=== PATIENT | female | born 1970 ===

== ENCOUNTER 2018-10-04 06:33 | Emergency (ER) | payer OTHER ==
[2018-10-04 06:48] VITALS: RESP 18; TEMP 98.5; O2SAT 98
[2018-10-04 06:49] VITALS: BMI 41.1
[2018-10-04] MEDS ORDERED: Sodium Chloride 0.9% 1,000 ML IV STA (07:56)
[2018-10-04 08:43] LABS: BASO # 0.1 K/uL (0.0-0.2); BASO % 0.9 % (0.0-2.0); EOS # 0.2 K/uL (0.0-0.7); EOS % 2.4 % (0.0-4.0); HEMOGLOBIN 12.1 g/dL (12.0-16.0); LYMPH # 2.4 K/uL (1.0-4.3); LYMPH % 28.5 % (20.0-40.0); MEAN CELL VOLUME 86.6 fl (81.0-99.0); MEAN CORPUSCULAR HEMOGLOBIN 28.8 pg (27.0-31.0); MEAN CORPUSCULAR HGB CONC 33.2 g/dL (33.0-37.0); MEAN PLATELET VOLUME 8.2 fl (7.2-11.7); MONO # 0.5 K/uL (0.0-0.8); MONO % 6.4 % (0.0-10.0); NEUT # 5.2 K/uL (1.8-7.0); NEUT % 61.8 % (50.0-75.0); RBC 4.2 Mil/uL (3.80-5.20); RED CELL DISTRIBUTION WIDTH 14.2 % (11.5-14.5); WHITE BLOOD COUNT 8.4 K/uL (4.8-10.8)
--- NOTE | 2018-10-04 08:44 | ED PDOC ---
HPI: Abdomen Time Seen by Provider: 10/04/18 07:15 Chief Complaint (Nursing): Abdominal Pain Chief Complaint (Provider): Abdominal Pain History Per: Patient, Setup Technician (Robb Hughes #[id number]) Onset/Duration Of Symptoms: Worse Since (x2 weeks), Other (x5 months) Current Symptoms Are (Timing): Still Present Additional Complaint(s): Patient is a 48 y/o female with a PMHx of HTN, anxiety, and depression who presents to the ED for evaluation of permanent abdominal pain for the past five months. Patient states for the past two weeks she has had an associative fever, dysuria, hematuria, and occasional diarrhea. Patient claims she took Acetaminophen three days ago with minimal relief. Patient reports her temperature two days ago was 39 degrees Celsius. Of note, patient takes medication for depression, panic attacks, and headaches. PCP: None Provided Past Medical History Reviewed: Historical Data, Nursing Documentation, Vital Signs Vital Signs: Last Vital Signs Temp 98.5 F 10/04/18 06:48 Pulse 68 10/04/18 06:48 Resp 18 10/04/18 06:48 BP 132/78 10/04/18 06:48 Pulse Ox 98 10/04/18 06:48 - Medical History PMH: Anxiety, Depression, HTN - Surgical History Other surgeries: Hysterectomy - Family History Family History: States: No Known Family Hx - Home Medications Home Medications: Ambulatory Orders Medication Instructions Recorded Nitrofurantoin Macrocrystals 100 mg PO BID #9 cap 10/04/18 [Macrobid] traMADol [Ultram] 50 mg PO BID PRN #10 tab 10/04/18 - Allergies Allergies/Adverse Reactions: Allergies Allergy/AdvReac Type Severity Reaction Status Date / Time No Known Allergies Allergy Verified 10/04/18 06:57 Review of Systems ROS Statement: Except As Marked, All Systems Reviewed And Found Negative Constitutional: Positive for: Fever Gastrointestinal: Positive for: Abdominal Pain, Diarrhea Genitourinary Female: Positive for: Dysuria, Hematuria Physical Exam - Reviewed Nursing Documentation Reviewed: Yes Vital Signs Reviewed: Yes - Physical Exam Appears: Positive for: Non-toxic, No Acute Distress Head Exam: Positive for: ATRAUMATIC, NORMAL INSPECTION, NORMOCEPHALIC Skin: Positive for: Normal Color, Warm, DRY Eye Exam: Positive for: EOMI, Normal appearance, PERRL Neck: Positive for: Normal, Painless ROM, Supple Cardiovascular/Chest: Positive for: Regular Rate, Rhythm. Negative for: Murmur Respiratory: Positive for: Normal Breath Sounds. Negative for: Respiratory Distress Gastrointestinal/Abdominal: Positive for: Soft, Tenderness (left lower quadrant) Pelvic Exam: Positive for: External Exam Normal, Blood (Minimal dark blood in vault), Other (Emr Implementation Specialist: DERRELL Cartagena). Negative for: Active Bleeding, Lesions, Mass, Ulcers Back: Positive for: Normal Inspection. Negative for: L CVA Tenderness, R CVA Tenderness, Vertebral Tenderness Extremity: Positive for: Normal ROM. Negative for: Pedal Edema, Deformity Neurological/Psych: Positive for: Alert, Oriented (x3) - Laboratory Results Result Diagrams: 10/04/18 08:30 10/04/18 08:30 - ECG ECG Rhythm: Positive for: Sinus Bradycardia. Negative for: ST/T Changes Rate: 54 O2 Sat by Pulse Oximetry: 98 (RA) Pulse Ox Interpretation: Normal Medical Decision Making Medical Decision Making: Time: 08 Impression: UTI; r/o kidney stones Plan: CT Abd & Pelvis w/o PO or IV Contrast EKG CMP CBC PTT Prothrombin Time IV Fluids Toradol 15 mg IVP UA Time: 1031 FINDINGS: LOWER THORAX: Unremarkable. LIVER: Unremarkable. No gross lesion or ductal dilatation. GALLBLADDER AND BILE DUCTS: Unremarkable. PANCREAS: Unremarkable. No gross lesion or ductal dilatation. SPLEEN: Unremarkable. ADRENALS: Unremarkable. No mass. KIDNEYS AND URETERS: Punctate nonobstructing intrarenal calculus is identified at the lower pole left kidney. No right radiodense urolithiasis. No bilateral perinephric fluid collection or obstructive uropathy is appreciate bilaterally. The bilateral ureters appear normal caliber overall. No suspicious renal contour changes to s uggest underlying mass. The lack of intravenous contrast limits evaluation of the renal parenchyma bilaterally. VASCULATURE: Unremarkable. No aortic aneurysm. No aortic atherosclerotic calcification or mural plaque present. BOWEL: Unremarkable. No obstruction. No gross mural thickening. APPENDIX: Unremarkable. Normal appendix. PERITONEUM: Unremarkable. No free fluid. No free air. LYMPH NODES: Unremarkable. No enlarged lymph nodes. BLADDER: Unremarkable. REPRODUCTIVE: There is a complex cystic mass identified at the left lower quadrant abdomen/left hemipelvis crossing over to the right slightly, measuring 18.6 x 10.1 x 20.9 cm (transverse by anteroposterior by superoinferior dimensions) , well-circumscribed without local peritoneal reactive changes associated. Septations are identified inferiorly. This suspicious for possible left ovarian neoplasm including cystadenoma or cystadenocarcinoma. Follow-up transabdominal pelvic ultrasonography advised. No suspicious right adnexal changes. Right ovary is felt to be identified independent of this cystic mass. BONES: Degenerative grade 1 spondylolisthesis L5 posterior to S1 less than 1 cm. No spondylolysis identified. OTHER FINDINGS: None. IMPRESSION: 1. A 20.9 cm complex cystic mass is seen at the left lower quadrant/left hemipelvis minimally involving the right [place] abdomen and right hemipelvis suspicious for possible left adnexal cystadenoma or cystadenocarcinoma though other cystic neoplasms are not excluded. Follow-up transabdominal pelvic ultrasound advised for added characterization. 2. Punctate nonobstructing intrarenal calculus lower pole left kidney. 11:[address] Cardoza ([facility]Day [facility] Assistant production service manager), recommends CA-125 and pelvic ultrasound, follow-up with [facility] as outpatient. Accession No. : [id number] Patient Name / ID : FRANCISCA DAN / [id number] Exam Date : 10/04/2018 11:39:58 ( Approved ) Study Comment : Sex / Age : F / 48Y Creator : Enzo Pablo MD Dictator : Enzo Pablo MD Accounting/Finance Tutor : Intervention Manager : Enzo Pablo MD Approver2 : Report Date : 10/04/2018 12:25:39 My Comment : Date of service: 10/04/2018 HISTORY: L adnexal mass COMPARISON: None available. TECHNIQUE: FINDINGS: UTERUS: Prior hysterectomy. ENDOMETRIUM: As above. CERVIX: As above. RIGHT OVARY: What appears the right ovary is mildly enlarged measuring 4.5 x 2.9 x 4.6 cm in harbors a complex cyst measuring 3.0 x 2.6 x 3.0 cm. Arterial spectral waveform is interrogated on spectral Doppler ultrasonography and torsion is not suggested. LEFT OVARY: The left ovary is not clearly identified but may be replaced by a large complex cystic adnexal mass measuring 21.1 x 9.9 x 17.1 cm corresponding to the CT finding identified earlier today 10/04/2018. Limited blood flow is appreciated within the septations. This is a nonspecific finding could reflect this cystic adenoma or cystic adenocarcinoma as previously suspected. The inferior portion of the cystic lesion contains the vast majority of septal complexity. FREE FLUID: No significant free fluid noted. OTHER FINDINGS: None. IMPRESSION: 21.1 cm complex cystic mass corresponds to the CT finding performed earlier today 10/04/2018 with differential diagnosis primarily consisting of cysts cystic adenoma or cystadenocarcinoma though other etiologies are possible. Gynecological consultation advised. Mildly enlarged right ovary due to a complex cyst 3.0 cm greatest dimension. Prior hysterectomy. Findings discussed with patient in detail using [employer] optical glass sawyer (#[id number]), need for close follow-up with Ob-Day Care Assistant discussed, questions answered, expressed verbal understanding. Scribe Attestation: Documented by Amadou Pulido, acting as a scribe for Anahi Ramsey MD. Provider Scribe Attestation: All medical record entries made by the Scribe were at my direction and personall y dictated by me. I have reviewed the chart and agree that the record accurately reflects my personal performance of the history, physical exam, medical decision making, and the department course for this patient. I have also personally directed, reviewed, and agree with the discharge instructions and disposition. Disposition - Clinical Impression Clinical Impression: Ovarian cystic mass, UTI (urinary tract infection) - Disposition [facility] Disposition: Routine/Home Disposition Time: 13:00 Condition: STABLE Prescriptions: Nitrofurantoin Macrocrystals [Macrobid] 100 mg PO BID #9 cap traMADol [Ultram] 50 mg PO BID PRN #10 tab PRN Reason: Pain, Severe (8-10) Instructions: Urinary Tract Infections in Adults, Ovarian Cysts Forms: [employer] (Uzbek) Print Language: NAMIBIAN
[2018-10-04 08:48] LABS: INR 1.1; PROTHROMBIN TIME 12.4 Seconds (9.8-13.1)
[2018-10-04 08:59] LABS: ALB/GLOB RATIO 1.2 (1.0-2.1); ALBUMIN 4.2 g/dL (3.5-5.0); ALT/SGPT 19 U/L (9-52); AST/SGOT 18 U/L (14-36); BLOOD UREA NITROGEN 14 mg/dl (7-17); CALCIUM 9.6 mg/dL (8.4-10.2); GFR NON-AFRICAN AMERICAN > 60
[2018-10-04 09:00] LABS: SQUAMOUS EPITHIAL 4 /hpf (0-5); URINE BACTERIA MANY (<OCC); URINE BILIRUBIN NEGATIVE (NEGATIVE); URINE BLOOD MODERATE (NEGATIVE); URINE CLARITY CLOUDY (Clear); URINE COLOR YELLOW (YELLOW); URINE GLUCOSE (UA) NEG (NEGATIVE); URINE LEUKOCYTE ESTERASE NEG Leu/uL (Negative); URINE PROTEIN NEGATIVE (NEGATIVE); URINE UROBILINOGEN 0.2-1.0 mg/dL (0.2-1.0)
--- NOTE | 2018-10-04 10:35 | CT ---
Date of service: 10/04/2018 PROCEDURE: CT Abdomen and Pelvis without intravenous contrast HISTORY: LLQ pain COMPARISON: None. TECHNIQUE: Helical CT of the abdomen and pelvis was performed without oral or intravenous contrast as per referring physician request. Coronal and sagittal reformats were generated. Radiation dose: Total exam DLP = 947.62 mGy-cm. This CT exam was performed using one or more of the following dose reduction techniques: Automated exposure control, adjustment of the mA and/or kV according to patient size, and/or use of iterative reconstruction technique. FINDINGS: LOWER THORAX: Unremarkable. LIVER: Unremarkable. No gross lesion or ductal dilatation. GALLBLADDER AND BILE DUCTS: Unremarkable. PANCREAS: Unremarkable. No gross lesion or ductal dilatation. SPLEEN: Unremarkable. ADRENALS: Unremarkable. No mass. KIDNEYS AND URETERS: Punctate nonobstructing intrarenal calculus is identified at the lower pole left kidney. No right radiodense urolithiasis. No bilateral perinephric fluid collection or obstructive uropathy is appreciate bilaterally. The bilateral ureters appear normal caliber overall. No suspicious renal contour changes to suggest underlying mass. The lack of intravenous contrast limits evaluation of the renal parenchyma bilaterally. VASCULATURE: Unremarkable. No aortic aneurysm. No aortic atherosclerotic calcification or mural plaque present. BOWEL: Unremarkable. No obstruction. No gross mural thickening. APPENDIX: Unremarkable. Normal appendix. PERITONEUM: Unremarkable. No free fluid. No free air. LYMPH NODES: Unremarkable. No enlarged lymph nodes. BLADDER: Unremarkable. REPRODUCTIVE: There is a complex cystic mass identified at the left lower quadrant abdomen/left hemipelvis crossing over to the right slightly, measuring 18.6 x 10.1 x 20.9 cm (transverse by anteroposterior by superoinferior dimensions) , well-circumscribed without local peritoneal reactive changes associated. Septations are identified inferiorly. This suspicious for possible left ovarian neoplasm including cystadenoma or cystadenocarcinoma. Follow-up transabdominal pelvic ultrasonography advised. No suspicious right adnexal changes. Right ovary is felt to be identified independent of this cystic mass. BONES: Degenerative grade 1 spondylolisthesis L5 posterior to S1 less than 1 cm. No spondylolysis identified. OTHER FINDINGS: None. IMPRESSION: 1. A 20.9 cm complex cystic mass is seen at the left lower quadrant/left hemipelvis minimally involving the right [place] abdomen and right hemipelvis suspicious for possible left adnexal cystadenoma or cystadenocarcinoma though other cystic neoplasms are not excluded. Follow-up transabdominal pelvic ultrasound advised for added characterization. 2. Punctate nonobstructing intrarenal calculus lower pole left kidney.
--- NOTE | 2018-10-04 12:29 | US ---
Date of service: 10/04/2018 HISTORY: L adnexal mass COMPARISON: None available. TECHNIQUE: FINDINGS: UTERUS: Prior hysterectomy. ENDOMETRIUM: As above. CERVIX: As above. RIGHT OVARY: What appears the right ovary is mildly enlarged measuring 4.5 x 2.9 x 4.6 cm in harbors a complex cyst measuring 3.0 x 2.6 x 3.0 cm. Arterial spectral waveform is interrogated on spectral Doppler ultrasonography and torsion is not suggested. LEFT OVARY: The left ovary is not clearly identified but may be replaced by a large complex cystic adnexal mass measuring 21.1 x 9.9 x 17.1 cm corresponding to the CT finding identified earlier today 10/04/2018. Limited blood flow is appreciated within the septations. This is a nonspecific finding could reflect this cystic adenoma or cystic adenocarcinoma as previously suspected. The inferior portion of the cystic lesion contains the vast majority of septal complexity. FREE FLUID: No significant free fluid noted. OTHER FINDINGS: None. IMPRESSION: 21.1 cm complex cystic mass corresponds to the CT finding performed earlier today 10/04/2018 with differential diagnosis primarily consisting of cysts cystic adenoma or cystadenocarcinoma though other etiologies are possible. Gynecological consultation advised. Mildly enlarged right ovary due to a complex cyst 3.0 cm greatest dimension. Prior hysterectomy.
[2018-10-04 13:47] VITALS: BP 124/78
--- NOTE | 2018-10-05 10:27 | CARD ---
APPROVED REPORT Date of service: 10/04/2018 EKG Measurement Heart [id number] <Conclusion> Sinus bradycardia with marked sinus arrhythmia Otherwise normal ECG
[2018-10-06 10:24] VITALS: PULSE 54
== END 2018-10-04 13:00 | disposition home or self-care (01) ==
LOC: H.ER 06:33
DX: N39.0 Urinary tract infection, site not specified (principal); N83.201 Unspecified ovarian cyst, right side; I10 Essential (primary) hypertension
CPT/HCPCS: 74176; 76856; 80053; 81003; 81025; 85025; 85610; 85730; 86304; 93005; 96361; 96374; 99284; J1885; J7030

== ENCOUNTER 2018-10-10 10:31 | Emergency (ER) | payer OTHER ==
[2018-10-10 10:39] VITALS: BMI 40.7
--- NOTE | 2018-10-10 11:06 | ED PDOC ---
HPI: Abdomen Additional Complaint(s): 48 y/o female with a PMHx of HTN, anxiety, and depression and L ovarian cyst presents to the ED for evaluation of persistent abdominal pain for the past week. Patient also needs referral to CEMETERY MANAGER. Patient was seen in the ED last week and states pain is better though still in the LLQ. Otherwise she fever, dysuria, hematuria, vaginal discharge or bleeding, no other abd pain. PCP: none provided <Justin Velasquez - Last Filed: 10/10/18 11:18> <Samantha Fontanez - Last Filed: 10/11/18 14:52> Chief Complaint (Nursing): Abdominal Pain Supervising Attending Note - Supervising Attending Note The Documented history was done by the: Physician Newcomer Hostess The documented physical exam was done by the: Physician Newcomer Hostess The documented procedures were done by the: Physician Newcomer Hostess - Attestation: I have personally seen and examined this patient.: Yes I have fully participated in the care of the patient.: Yes I have reviewed all pertinent clinical information: Yes - Notes: Notes:: Agree with resident workup and assessment. [facility] which was given. No additional medical workup needed as patient not in any pain. <Samantha Fontanez - Last Filed: 10/11/18 14:52> Past Medical History Vital Signs: Last Vital Signs Temp 98.6 F 10/10/18 10:37 Pulse 70 10/10/18 10:37 Resp 16 10/10/18 10:37 BP 131/75 10/10/18 10:37 Pulse Ox 97 10/10/18 10:37 - Medical History PMH: Anxiety, Depression, HTN - Family History Family History: States: Unknown Family Hx <Justin Velasquez - Last Filed: 10/10/18 11:18> Vital Signs: Last Vital Signs Temp 97.5 F L 10/10/18 11:09 Pulse 78 10/10/18 11:09 Resp 19 10/10/18 11:09 BP 126/78 10/10/18 11:09 Pulse Ox 97 10/10/18 11:18 <Samantha Fontanez - Last Filed: 10/11/18 14:52> - Home Medications Home Medications: Ambulatory Orders Medication Instructions Recorded Nitrofurantoin Macrocrystals 100 mg PO BID #9 cap 10/04/18 [Macrobid] traMADol [Ultram] 50 mg PO BID PRN #10 tab 10/04/18 - Allergies Allergies/Adverse Reactions: Allergies Allergy/AdvReac Type Severity Reaction Status Date / Time No Known Allergies Allergy Verified 10/04/18 06:57 Review of Systems Constitutional: Negative for: Fever, Chills Cardiovascular: Negative for: Chest Pain, Palpitations Respiratory: Negative for: Cough, Shortness of Breath Gastrointestinal: Positive for: Abdominal Pain (LLQ). Negative for: Nausea, Vomiting, Diarrhea, Constipation Genitourinary Female: Negative for: Dysuria, Frequency, Hematuria, Vaginal Discharge, Vaginal Bleeding <Justin Velasquez - Last Filed: 10/10/18 11:18> Physical Exam - Reviewed Nursing Documentation Reviewed: Yes Vital Signs Reviewed: Yes - Physical Exam Appears: Positive for: No Acute Distress Head Exam: Positive for: NORMAL INSPECTION Skin: Positive for: Normal Color, Warm, Dry Cardiovascular/Chest: Positive for: Regular Rate, Rhythm. Negative for: Murmur, Tachycardia Respiratory: Positive for: Normal Breath Sounds. Negative for: Crackles, Rhonchi, Wheezing Gastrointestinal/Abdominal: Positive for: Bowel Sounds, Soft, Tenderness (LLQ). Negative for: Distended, Guarding Extremity: Negative for: Tenderness, Pedal Edema Neurological/Psych: Positive for: Awake, Alert, Oriented, commercial baker helper II-XII <Justin Velasquez - Last Filed: 10/10/18 11:18> - ECG O2 Sat by Pulse Oximetry: 97 <Justin Velasquez - Last Filed: 10/10/18 11:18> Medical Decision Making Medical Decision Making: Dx: L ovarian complex cyst 21.1cm -- Patient reporting pain control with meds -- Will discharge home -- [facility] - Advised about importance to f/u with CEMETERY MANAGER as soon as possible, pt verbalizes understanding. she will today to get an appt. <Justin Velasquez - Last Filed: 10/10/18 11:18> Disposition - Patient ED Disposition Is Patient to be Admitted: No Counseled Patient/Family Regarding: Diagnosis, Need For Followup - Disposition Disposition: Routine/Home Disposition Time: 11:03 <Justin Velasquez - Last Filed: 10/10/18 11:18> <Samantha Fontanez - Last Filed: 10/11/18 14:52> - Clinical Impression Clinical Impression: Abdominal pain, Ovarian cystic mass - Disposition [facility]errals[facility]] Condition: STABLE Instructions: Ovarian Cyst (DC) Forms: [employer] (Divehi)
[2018-10-10 11:10] VITALS: BP 126/78; PULSE 78; RESP 19; TEMP 97.5
[2018-10-10 11:11] VITALS: O2SAT 97
== END 2018-10-10 11:10 | disposition home or self-care (01) ==
LOC: H.ER 10:31
DX: R10.9 Unspecified abdominal pain (principal); N83.202 Unspecified ovarian cyst, left side; Z86.59 Personal history of other mental and behavioral disorders; I10 Essential (primary) hypertension